=== PATIENT | female | born 2005 | race Two or more races ===

== ENCOUNTER 2024-12-05 16:26 | Emergency (ER) | payer OTHER, SELFPAY ==
[2024-12-05 16:27] VITALS: BMI 24.0
[2024-12-05 17:11] VITALS: BP 117/74; PULSE 76; RESP 18; TEMP 37; O2SAT 100
--- NOTE | 2024-12-05 17:15 | PD.EDALLER ---
ED Allergic Reaction RME/HPI General Chief complaint: Allergic Reaction Stated complaint: ALLERGIC REACTION Time Seen by Provider: 12/05/24 16:28 Arrival date/time: 12/05/24 16:26 RME / HPI RME / HPI narrative: 19-year-old female patient was brought in for evaluation regarding allergic to nuts. Patient was eating almonds and suddenly developed diarrhea and itchy throat. Denies any difficulty swallowing. Denies any shortness of breath. Incident happened an hour prior to ER visit. No medication was given prior to arrival. Related Data Previous Rx's ?Medication ?Instructions ?Recorded epinephrine 0.3 mg/0.3 mL 0.3 ml subcut .once #2 ea 12/05/24 injection, auto-injector Allergies Allergy/AdvReac Type Severity Reaction Status Date / Time NUTS Allergy Uncoded 12/05/24 16:30 Review of Systems Review of Systems Narrative Review of Systems: Review of system reviewed and within normal limits except mentioned in HPI ED Exam Narrative Physical exam: VITAL SIGNS: Reviewed. GENERAL APPEARANCE: Alert and interactive, follows commands, no acute distress, HEAD AND FACE: Non-traumatic. ENT: PERRL, pink conjunctivitis, eyelid no trauma, Mucous membrane moist. NECK: Supple, nontender, no nuchal rigidity. CHEST: No tenderness, no crepitus, no paradoxical movement, no retractions. LUNGS: Clear, well ventilated, symmetric, no rales, no wheezing, no ronchi, no stridor, good breath sounds bilaterally. HEART: Regular rate, regular rhythm, no murmur, no gallops. ABDOMEN: Soft, positive bowel sounds, nondistended, no guarding, nontender, no rebound, no masses, RECTAL: Deferred. GENITAL: Deferred. NEUROLOGICAL: Gross motor function intact sensory function intact, Appropriate for age. MUSCULOSKELETAL: low back nontender, full range of motion. EXTREMITIES: Nontender, full range of motion. SKIN: Color pink, dry, no rash, no lacerations, no abrasions, no contusions. LYMPHATICS: Deferred. Course Quality Measures none Orders Category Date Time Status Dexamethasone Inj [Decadron Inj] Med 12/05/24 17:13 Discontinued 10 mg IM X1 ONE DiphenhydrAMINE [Benadryl] Med 12/05/24 17:13 Discontinued 50 mg PO X1 ONE Famotidine [Pepcid] Med 12/05/24 17:13 Discontinued 40 mg PO X1 ONE Vital Signs Vital signs: Vital Signs Temperature 98.6 F 12/05/24 17:11 Pulse Rate 76 12/05/24 17:11 Respiratory Rate 18 12/05/24 17:11 Blood Pressure 117/74 12/05/24 17:11 Pulse Oximetry (%) 100 12/05/24 17:11 Oxygen Delivery Method Room Air 12/05/24 17:11 Allergic Reaction MDM Narrative MDM Narrative:: 19-year-old female patient was brought in for evaluation regarding allergic to nuts. Patient was eating almonds and suddenly developed diarrhea and itchy throat. Denies any difficulty swallowing. Denies any shortness of breath. Incident happened an hour prior to ER visit. No medication was given prior to arrival. Patient was given Decadron, Benadryl and Pepcid with complete resolution of symptoms patient stable discharged home Patient appears nontoxic and hemodynamically stable .Decision to discharge the patient. The patient/family was given an opportunity to ask questions and understood their discharge instructions. Discharge instructions specifically included follow up provider and time frame, current and/or new medications and possible side effects, indications for sooner follow up or return to the emergency department, and the expected course of current diagnosis. Patient reports feeling better as well and giving evidence of significant clinical improvement, I believe patient is now a candidate for discharge. Patient data External records reviewed:: None Clinical information provided by:: patient Social determinants that could affect healthcare access:: none Patient has the following chronic illnesses:: None How is presenting disease/condition affected by chronic disease/condition?: no chronic disease Evaluation data The following diagnostics were reviewed and interpreted by me:: other (specify) Lab and/or radiology exams considered but not ordered:: None Interpretation Summary: None Medications / Prescriptions Medications or Prescriptions considered but not ordered:: None Medication administrations:: Medication Administration History Discontinued Medications Dexamethasone Sodium Phosphate (Dexamethasone Sod Phos Inj 10 Mg/Ml Vial) 10 mg IM X1 ONE Stop: 12/05/24 17:14 Last Admin: 12/05/24 17:19 Dose: 10 mg Documented By: LAYO Diphenhydramine HCl (Diphenhydramine 25 Mg Capsule) 50 mg PO X1 ONE Stop: 12/05/24 17:14 Last Admin: 12/05/24 17:19 Dose: 50 mg Documented By: LAYO Famotidine (Famotidine 20 Mg Tablet) 40 mg PO X1 ONE Stop: 12/05/24 17:14 Last Admin: 12/05/24 17:20 Dose: 40 mg Documented By: LAYO Jeffersadrymauri and Pepcid Consultations Consultation(s) initiated? (list below): No Diagnosis Differential Diagnosis allergic reaction: allergic reaction and urticaria Most likely diagnosis given after review of the tests above:: Food allergy, allergic reaction Admission Indicated Admission indicated?: not indicated Admission Request Was there a request for admission?: No Disposition Plan Disposition Plan: Discharge Discharge Attestation Discharge Attestation: The patient and all family members were given an opportunity to ask questions and understood the discharge instructions. Discharge instructions specifically effects, indications for sooner follow up or return to the emergency department, and the expected course of current diagnosis. Patient condition: Stable Discharge Plan Plan Patient Disposition: HOME (Self Care) Discharge Disposition comment: Stable Prescriptions/Referrals Prescriptions/Med Rec: New epinephrine 0.3 mg/0.3 mL auto-injector 0.3 ml subcut .once Qty: 2 0RF Referrals: No Primary/Family,Physician [Primary Care Provider] - In 1 week Problem List Clinical Impression: Allergic reaction, Food allergy Patient/Caregiver Discharge Instructions Discharge Activity: activity as tolerated Education Materials: ED Food Allergy Additional Instructions: Thank you for the opportunity for serving you today. You are stable for discharged . You are advised to: Follow-up with your PCP in 1 to 2 days Return to ED for worsening of symptoms Increase oral fluids Take medication as prescribed only as needed for anaphylaxis Print Language: Vietnamese Stand Alone Forms: Jacqueline Award Info., Patient Portal Info Letter
[2024-12-05] MEDS: DiphenhydrAMINE 25 MG CAPSULE 50 MG PO (17:19)
[2024-12-05] MEDS: DEXAMETHASONE SOD PHOS INJ 10 MG/ML VIAL IM (17:19)
[2024-12-05] MEDS: FAMOTIDINE 20 MG TABLET 40 MG PO (17:20)
== END 2024-12-05 19:01 | disposition home or self-care (01) ==
PROVIDERS: Emergency Provider Emergency Medicine
DX: T78.40XA Allergy, unspecified, initial encounter (principal); Z88.8 Allergy status to other drugs, medicaments and biological substances
CPT/HCPCS: 96372; 99283; J1100; A9270